=== PATIENT | female | born 1990 | race Two or more races ===

== ENCOUNTER 2020-03-28 17:15 | Emergency (ER) | payer MEDICARE, MEDICAID ==
[2020-03-28] MEDS ORDERED: Lidocaine 1% with EPINEPHrine 1:100,000 10 ML MDV INFILT ONE (17:16)
--- NOTE | 2020-03-28 17:34 | EDM.PDOC ---
ED HPI GENERAL MEDICAL PROBLEM - General Chief Complaint: Skin Complaint Stated Complaint: BOIL LT BREAST Time Seen by Provider: 03/28/20 17:30 Source of Information: Reports: Patient History Limitations: Reports: No Limitations - History of Present Illness INITIAL COMMENTS - FREE TEXT/NARRATIVE: 29-year-old female who reports on she noticed a soreness and a raised area that she felt was a pimple on the anterior and medial aspect of her left breast. Since then the area has progressively become more swollen and painful. She reports the pain is now a 5/10 and is sore and sharp some aching and throbbing and has been improved by the icepack that she placed. Pain was a 7-8/ 10 earlier. She has had some nausea but no vomiting. She has had no fevers or chills. She has been eating and drinking normally. No nipple discharge. No weakness or dizziness. There are no other associated signs or symptoms. There are no other modifying factors. 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) Left breast Pain Score (Numeric/FACES): 7 - Related Data Allergies Allergy/AdvReac Type Severity Reaction Status Date / Time No Known Allergies Allergy Verified 03/28/20 17:26 Home Meds: Home Meds ARIPiprazole [Abilify Maintena] 400 mg IM Q30D 03/28/20 [History] Aspirin [Halfprin] 81 mg PO DAILY 03/28/20 [History] Doxycycline Monohydrate 100 mg PO BID 10 Days #20 tablet 03/28/20 [Rx] Prazosin [Minpress] 1 mg PO BEDTIME 03/28/20 [History] Venlafaxine [Effexor XR] 150 mg PO DAILY 03/28/20 [History] cloZAPine 150 mg PO BEDTIME 03/28/20 [History] metFORMIN [Glucophage] 500 mg PO BID 03/28/20 [History] Past Medical History Psychiatric History: Reports: Anxiety, Schizophrenia Endocrine/Metabolic History: Reports: Diabetes, Type II, Obesity/BMI 30+ - Past Surgical History Other Surgical History Comment: No previous surgeries. Social & Family History - Tobacco Use Smoking Status *Q: Unknown Ever Smoked (Nonsmoker) - Alcohol Use Alcohol Use History: No - Living Situation & Occupation Occupation: Unemployed Social History Comment: Lives at home with her family. ED ROS GENERAL - Review of Systems Review Of Systems: See Below Constitutional: Reports: No Symptoms HEENT: Reports: No Symptoms Respiratory: Reports: No Symptoms Cardiovascular: Reports: No Symptoms GI/Abdominal: Reports: Nausea. Denies: Vomiting : Reports: No Symptoms Musculoskeletal: Reports: No Symptoms Skin: Reports: Erythema, Other (Swollen, red area on left inferior breast with increased warmth) Neurological: Reports: No Symptoms Hematologic/Lymphatic: Reports: No Symptoms Immunologic: Reports: No Symptoms ED EXAM, SKIN/RASH Exam: See Below Exam Limited By: No Limitations General Appearance: Alert, WD/WN, Mild Distress, Other (Nontoxic appearing) Eye Exam: Bilateral Eye: Corneal Abrasion, Normal Inspection, PERRL Ears: Normal External Exam, Hearing Grossly Normal Nose: Normal Inspection, Normal Mucosa, No Blood Throat/Mouth: Normal Inspection, Normal Oropharynx, Normal Voice, No Airway Compromise Head: Atraumatic, Normocephalic Neck: Normal Inspection, Supple, Non-Tender, Full Range of Motion Respiratory/Chest: No Respiratory Distress, Lungs Clear, Normal Breath Sounds, No Accessory Muscle Use, Other (Tender, erythematous, fluctuant area about the size of a golf ball on her left inferior medial breast. No nipple discharge.) Cardiovascular: Normal Peripheral Pulses, No Murmur, Tachycardia (Mildly) Peripheral Pulses: 2+: Radial (L), Radial (R) GI/Abdominal: Normal Bowel Sounds, Soft, Non-Tender, No Mass Back Exam: Normal Inspection Extremities: Normal Inspection, Normal Range of Motion, Non-Tender, No Pedal Edema, Normal Capillary Refill Neurological: Alert, Oriented, CN II-XII Intact, Normal Cognition, No Motor/ Sensory Deficits Psychiatric: Normal Affect Skin: Warm, Dry, Intact, Erythema (Area on left breast), Increased Warmth (Area on left breast) Location, Skin: Other (Left) Characteristics: Erythematous Associated features: Warmth, Tenderness, Swelling (With fluctuant area about the size of a golf ball.), Inflammation Lymphatic: No Adenopathy ED SKIN PROCEDURES - I&D Site: Left breast Skin Prep: Providone-Iodine (Betadine) Local Anesthesia: Lidocaine: 1% with EPI Local Anesthetic Volume: Other (14 mL. The area around the abscess was injected and then the skin overlying the abscess was injected. There was good anesthesia no complications.) Area Incised With: 11 Blade Drainage: Purulent, Large Amount Probed to Break Up Loculations: Yes Packed With: 1/2 in. Iodoform Sterile Dressing: Adhesive Dressing, 4x4(s) Complications: No Progress/Comments: After informed verbal consent was obtained from the patient, the area was anesthetized as detailed above using 11 blade scalpel along the Lines of Leon , a 2.5 cm incision was made and large amount of pus was expressed. The area was probed with a blunt hemostat to break up loculations and then was copiously irrigated with Betadine-tinged normal saline and then was packed with half-inch iodoform gauze. An appropriate supportive dressing was applied by the nursing staff following this with 4 x 4's. The patient tolerated this well and there were no apparent complications. Course - Vital Signs Last Recorded V/S: Last Vital Signs Temp 36.4 C 03/28/20 17:20 Pulse 108 H 03/28/20 17:20 Resp 20 03/28/20 17:20 BP 118/74 03/28/20 17:20 Pulse Ox 97 03/28/20 17:20 - Orders/Labs/Meds Meds: Medications Discontinued Medications Generic Name Dose Route Start Last Admin Trade Name Freq PRN Reason Stop Dose Admin Doxycycline Hyclate 200 mg 03/28/20 18:19 03/28/20 18:25 Vibra-Tabs PO 03/28/20 18:20 200 mg ONETIME ONE Administration - Re-Assessments/Exams Free Text/Narrative Re-Assessment/Exam: 03/28/20 18:10: Patient does have history of diabetes and is on metformin and we checked her blood sugar and it was 143. Patient with subcutaneous abscess on the lower aspect of her left breast. It appears to be a skin abscess. It was I indeed successfully and packed with iodoform gauze. The patient will need to follow-up with her primary provider for reevaluation of her breast following resolution of the infection. I am placing the patient on doxycycline and will give her the first dose now. Precautions and reasons for return to the emergency department were discussed with the patient while she was in the emergency department and detailed in her discharge instructions. Departure - Departure Time of Disposition: 18:22 Disposition: Home, Self-Care 01 Condition: Good (Improved) Clinical Impression: Cellulitis of left breast Subcutaneous abscess Qualifiers: Site of cutaneous abscess: other site Qualified Code(s): L02.818 - Cutaneous abscess of other sites - Discharge Information Prescriptions: Doxycycline Monohydrate 100 mg PO BID 10 Days #20 tablet Instructions: Skin Abscess, [id number], Cellulitis, Adult, [id number] Referrals: Candy Gomez MD [Primary Care Provider] - Forms: ED Department Discharge Additional Instructions: You have an abscess of your left breast. It appears to be involving the skin only but you'll need to follow-up with your primary provider for the infection has resolved to have your breast rechecked. Medication as prescribed ( doxycycline 100 mg). Take probiotics or eat yogurt daily while you are on the antibiotic. You may take Tylenol 1000 mg by mouth every 6 hours as needed for pain. Leave the packing in place until Sunday and at that time remove the packing and wash the area thoroughly rinsing with a lot of water as the dressing after the shower. Do this 1-2 times daily until the wound has closed over. Back to the emergency department for increasing redness, increasing swelling, fever, vomiting, marked increase in pain or any other concerning sign or symptom. Sepsis Event Note - Evaluation Sepsis Screening Result: No Definite Risk - Focused Exam Vital Signs: Vital Signs Temp Pulse Resp BP Pulse Ox 03/28/20 17:20 36.4 C 108 H 20 118/74 97 Date Exam was Performed: 03/28/20 Time Exam was Performed: 18:28
[2020-03-28] MEDS ORDERED: Doxycycline 100 MG Tab PO ONE (18:19)
== END 2020-03-28 18:31 | disposition home or self-care (01) ==
LOC: FB.ED 17:15
DX: N61.0 Mastitis without abscess (principal); N61.1 Abscess of the breast and nipple; F20.9 Schizophrenia, unspecified; F41.9 Anxiety disorder, unspecified; E11.9 Type 2 diabetes mellitus without complications; E66.9 Obesity, unspecified; Z68.41 Body mass index [BMI] 40.0-44.9, adult; Z79.82 Long term (current) use of aspirin; Z79.84 Long term (current) use of oral hypoglycemic drugs; Z79.899 Other long term (current) drug therapy
CPT/HCPCS: 10060; 99283; A9270

== ENCOUNTER 2020-11-09 13:49 | Emergency (ER) | payer MEDICARE, MEDICAID ==
[2020-11-09] MEDS ORDERED: Sodium Chloride 0.9% 10 ML Syringe FLUSH PRN (13:50)
[2020-11-09] MEDS ORDERED: Ondansetron 4 MG/2 ML SDV IVPUSH ONE (13:52)
[2020-11-09] MEDS ORDERED: Sodium Chloride 0.9% 1,000 ML IV SCH ×2 (14:00→15:45)
[2020-11-09] MEDS ORDERED: Dexamethasone 4 MG Tab PO STA (14:09)
[2020-11-09] MEDS ORDERED: Acetaminophen 500 MG Tab PO ONE (15:15)
--- NOTE | 2020-11-09 15:41 | EDM.PDOC ---
ED HPI GENERAL MEDICAL PROBLEM - General Chief Complaint: Respiratory Problem Stated Complaint: COUGH,SOB/COVID Time Seen by Provider: 11/09/20 14:50 Source of Information: Reports: Patient History Limitations: Reports: No Limitations - History of Present Illness INITIAL COMMENTS - FREE TEXT/NARRATIVE: Patient presented to the ED because of fever, cough,chills, fatigue for 1 week and yesterday she started to have N/V/D. She also c/o dyspnea, denies any chest pain. Middle Abdomen Pain Score (Numeric/FACES): 4 - Related Data Allergies Allergy/AdvReac Type Severity Reaction Status Date / Time No Known Allergies Allergy Verified 03/28/20 17:26 Home Meds: Home Meds ARIPiprazole [Abilify Maintena] 400 mg IM Q30D 03/28/20 [History] Aspirin [Halfprin] 81 mg PO DAILY 03/28/20 [History] Doxycycline Monohydrate 100 mg PO BID 10 Days #20 tablet 03/28/20 [Rx] Prazosin [Minpress] 1 mg PO BEDTIME 03/28/20 [History] Venlafaxine [Effexor XR] 150 mg PO DAILY 03/28/20 [History] cloZAPine 150 mg PO BEDTIME 03/28/20 [History] metFORMIN [Glucophage] 500 mg PO BID 03/28/20 [History] Codeine/guaiFENesin [Robitussin AC] 10 ml PO Q4H PRN #1 bottle 11/09/20 [Rx] Ondansetron [Zofran ODT] 4 mg PO Q4H PRN #7 tab.dis 11/09/20 [Rx] dexAMETHasone [Dexamethasone] 6 mg PO DAILY #30 tab 11/09/20 [Rx] Past Medical History HEENT History: Reports: Impaired Vision Psychiatric History: Reports: Anxiety, Schizophrenia Endocrine/Metabolic History: Reports: Diabetes, Type II, Obesity/BMI 30+ Other Endocrine/Metabolic History: Pre-diabetes - Past Surgical History Other Surgical History Comment: No previous surgeries. Social & Family History - Caffeine Use Caffeine Use: Reports: Coffee, Soda, Tea - Living Situation & Occupation Occupation: Unemployed ED ROS GENERAL - Review of Systems Review Of Systems: See Below Constitutional: Reports: No Symptoms HEENT: Reports: No Symptoms Respiratory: Reports: Shortness of Breath, Cough Cardiovascular: Reports: No Symptoms Endocrine: Reports: No Symptoms GI/Abdominal: Reports: No Symptoms : Reports: No Symptoms Musculoskeletal: Reports: No Symptoms Skin: Reports: No Symptoms Neurological: Reports: No Symptoms Psychiatric: Reports: No Symptoms ED EXAM, GENERAL - Physical Exam Exam: See Below Exam Limited By: No Limitations General Appearance: Alert, No Apparent Distress Ears: Normal External Exam, Normal Canal Nose: Normal Inspection, Normal Mucosa, No Blood Throat/Mouth: Normal Inspection, Normal Lips, Normal Teeth Head: Atraumatic, Normocephalic Neck: Normal Inspection, Supple, Non-Tender Respiratory/Chest: No Respiratory Distress, Normal Breath Sounds, Decreased Breath Sounds Cardiovascular: Normal Peripheral Pulses, Regular Rate, Rhythm, No Edema GI/Abdominal: Normal Bowel Sounds, Soft, Non-Tender, No Organomegaly Back Exam: Normal Inspection, Full Range of Motion Extremities: Normal Inspection, Normal Range of Motion, Non-Tender Course - Vital Signs Text/Narrative:: Labs/CXR was discussed with patient Tylenol 1000 mg po x1 Zofran 4 mg IV x1 NS 1 L bolus x 2 Last Recorded V/S: Last Vital Signs Temp 38.6 C H 11/09/20 13:49 Pulse 100 11/09/20 13:49 Resp 20 11/09/20 13:49 BP 125/78 11/09/20 13:49 Pulse Ox 91 L 11/09/20 13:49 - Orders/Labs/Meds Orders: Active Orders 24 hr Category Date Time Status Oxygen Therapy [RC] ASDIRECTED Care 11/09/20 15:16 Active Vital Signs [RC] Q15M Care 11/09/20 15:47 Active Sodium Chloride 0.9% [Normal Saline] 1,000 ml Med 11/09/20 14:00 Active IV ASDIRECTED Sodium Chloride 0.9% [Normal Saline] 1,000 ml Med 11/09/20 15:45 Active IV ASDIRECTED Sodium Chloride 0.9% [Saline Flush] Med 11/09/20 13:50 Active 10 ml FLUSH ASDIRECTED PRN Sodium Chloride 0.9% [Saline Flush] Med 11/09/20 16:00 Active 30 ml FLUSH ASDIRECTED Isolation [COMM] Routine Oth 11/09/20 13:51 Ordered Saline Lock Insert [OM.PC] Routine Oth 11/09/20 13:50 Ordered Medication Orders Sodium Chloride (Normal Saline) 1,000 mls @ 999 mls/hr IV ASDIRECTED LINA Last Admin: 11/09/20 14:41 Dose: 999 mls/hr Documented by: TREMAINE Sodium Chloride (Normal Saline) 1,000 mls @ 999 mls/hr IV ASDIRECTED LINA Last Admin: 11/09/20 15:53 Dose: 999 mls/hr Documented by: TREMAINE Sodium Chloride (Saline Flush) 10 ml FLUSH ASDIRECTED PRN PRN Reason: Keep Vein Open Sodium Chloride (Saline Flush) 30 ml FLUSH ASDIRECTED LINA Labs: Laboratory Tests 11/09/20 11/09/20 11/09/20 Range/Units 14:00 14:00 14:05 WBC 5.4 (3.0-10.3) x10-3/uL RBC 4.33 (3.60-5.20) x10(6)uL Hgb 12.6 (11.4-15.5) g/dL Hct 37.9 (34.2-48.2) % MCV 87.5 (76.7-100.5) fL MCH 29.1 (23.9-33.9) pg MCHC 33.2 (31.9-34.8) g/dL RDW 13.9 (12.3-16.5) % Plt Count 167 (151-488) x10(3)uL MPV 8.6 (7.1-12.4) fL Neut % (Auto) 72.1 (30.8-76.2) % Lymph % (Auto) 23.9 (18.4-52.1) % Navarro % (Auto) 3.7 L (4.4-15.7) % Eos % (Auto) 0.0 L (0.6-8.1) % Baso % (Auto) 0.3 (0.2-1.5) % Neut # (Auto) 3.9 (1.5-6.3) x10-3/uL Lymph # (Auto) 1.3 (1.0-4.4) x10-3/uL [place]arro # (Auto) 0.2 L (0.3-1.0) x10-3/uL Eos # (Auto) 0.0 (0.0-0.8) x10-3/uL Baso # (Auto) 0.0 (0.0-0.1) x10-3/uL Sodium 133 L (135-145) mmol/L Potassium 3.8 (3.5-5.3) mmol/L Chloride 95 L (100-110) mmol/L Carbon Dioxide 24 (21-32) mmol/L BUN 8 (7-18) mg/dL Creatinine 0.7 (0.55-1.02) mg/dL Est Cr Clr Drug Dosing TNP Estimated GFR (MDRD) > 60 (>60) BUN/Creatinine Ratio 11.4 (9-20) Glucose 180 H (80-116) mg/dL Calcium 8.5 L (8.6-10.2) mg/dL Total Bilirubin 0.4 (0.1-1.3) mg/dL AST 99 H (5-25) IU/L ALT 135 H (12-36) U/L Alkaline Phosphatase 78 (56-112) IU/L Total Protein 8.0 (6.0-8.0) g/dL Albumin 2.8 L (3.5-5.2) g/dL Globulin 5.2 g/dL Albumin/Globulin Ratio 0.5 SARS-CoV-2 RNA (JUANIS) Positive H (NEGATIVE) Meds: Medications Generic Name Dose Route Start Last Admin Trade Name Freq PRN Reason Stop Dose Admin Sodium Chloride 1,000 mls @ 999 mls/hr 11/09/20 14:00 11/09/20 14:41 Normal Saline IV 999 mls/hr ASDIRECTED LINA Administration Sodium Chloride 1,000 mls @ 999 mls/hr 11/09/20 15:45 11/09/20 15:53 Normal Saline IV 999 mls/hr ASDIRECTED LINA Administration Sodium Chloride 10 ml 11/09/20 13:50 Saline Flush FLUSH ASDIRECTED PRN Keep Vein Open Sodium Chloride 30 ml 11/09/20 16:00 Saline Flush FLUSH ASDIRECTED LINA Discontinued Medications Generic Name Dose Route Start Last Admin Trade Name Freq PRN Reason Stop Dose Admin Acetaminophen 1,000 mg 11/09/20 15:15 11/09/20 15:17 Tylenol Extra Strength PO 11/09/20 15:16 1,000 mg ONETIME ONE Administration Dexamethasone 8 mg 11/09/20 14:09 11/09/20 14:13 Dexamethasone PO 11/09/20 14:10 8 mg NOW STA Administration Diphenhydramine HCl 50 mg 11/09/20 15:46 Benadryl IVPUSH ONETIME PRN hypersensitivity reaction Epinephrine HCl 0.3 mg 11/09/20 15:46 Adrenalin IM ONETIME PRN hypersensitivity reaction Famotidine 20 mg 11/09/20 15:46 Pepcid IVPUSH ONETIME PRN hypersensitivity reaction Bamlanivimab 700 mg/ Sodium 270 mls @ 270 mls/hr 11/09/20 15:46 Chloride IV 11/09/20 15:47 ONETIME ONE Protocol Methylprednisolone Sodium Succinate 125 mg 11/09/20 15:46 Solu-Medrol IVPUSH ONETIME PRN hypersensitivity reaction Ondansetron HCl 4 mg 11/09/20 13:52 11/09/20 14:13 Zofran IVPUSH 11/09/20 13:53 4 mg ONETIME ONE Administration Departure - Departure Time of Disposition: 16:15 Disposition: Home, Self-Care 01 Condition: Good Clinical Impression: COVID-19 - Discharge Information Prescriptions: dexAMETHasone [Dexamethasone] 6 mg PO DAILY #30 tab Codeine/guaiFENesin [Robitussin AC] 10 ml PO Q4H PRN #1 bottle PRN Reason: Cough Ondansetron [Zofran ODT] 4 mg PO Q4H PRN #7 tab.dis PRN Reason: Nausea Instructions: COVID-19 Frequently Asked Questions Referrals: PCP,None [Primary Care Provider] - Forms: ED Department Discharge Additional Instructions: Please read discharge instructions on COVID Rest Increase oral fluids Take tylenol 100 mg every 8 hours as needed for body ache and fever Take dexamethasone 6 mg daily for 10 days Take Vit C-500 mg, D-2000 units, Zinc6-50 mg Robitussin with codeine, 10 ml every 4-6 hours as needed for cough Call your doctor tomorrow and ask him/her to refer you to the [facility] for Bamlanivibab treatment. It helps a lot with your recovery. Follow up as needed Sepsis Event Note (ED) - Focused Exam Vital Signs: Vital Signs Temp Pulse Resp BP Pulse Ox 11/09/20 13:49 38.6 C H 100 20 125/78 91 L - My Orders Last 24 Hours: My Active Orders 11/09/20 13:50 Sodium Chloride 0.9% [Saline Flush] 10 ml FLUSH ASDIRECTED PRN Saline Lock Insert [OM.PC] Routine 11/09/20 13:51 Isolation [COMM] Routine 11/09/20 14:00 Sodium Chloride 0.9% [Normal Saline] 1,000 ml IV ASDIRECTED 11/09/20 15:16 Oxygen Therapy [RC] ASDIRECTED 11/09/20 15:45 Sodium Chloride 0.9% [Normal Saline] 1,000 ml IV ASDIRECTED 11/09/20 15:47 Vital Signs [RC] Q15M 11/09/20 16:00 Sodium Chloride 0.9% [Saline Flush] 30 ml FLUSH ASDIRECTED - Assessment/Plan Last 24 Hours: My Active Orders 11/09/20 13:50 Sodium Chloride 0.9% [Saline Flush] 10 ml FLUSH ASDIRECTED PRN Saline Lock Insert [OM.PC] Routine 11/09/20 13:51 Isolation [COMM] Routine 11/09/20 14:00 Sodium Chloride 0.9% [Normal Saline] 1,000 ml IV ASDIRECTED 11/09/20 15:16 Oxygen Therapy [RC] ASDIRECTED 11/09/20 15:45 Sodium Chloride 0.9% [Normal Saline] 1,000 ml IV ASDIRECTED 11/09/20 15:47 Vital Signs [RC] Q15M 11/09/20 16:00 Sodium Chloride 0.9% [Saline Flush] 30 ml FLUSH ASDIRECTED
[2020-11-09] MEDS ORDERED: EPINEPHrine 1 MG/ML SDV IM PRN (15:46)
[2020-11-09] MEDS ORDERED: methylPREDNISolone Sodium Succinate 125 MG/2 ML SDV IVPUSH PRN (15:46)
[2020-11-09] MEDS ORDERED: diphenhydrAMINE 50 MG/ML SDV IVPUSH PRN (15:46)
[2020-11-09] MEDS ORDERED: Famotidine 20 MG/2 ML SDV IVPUSH PRN (15:46)
--- NOTE | 2020-11-09 15:50 | CR ---
INDICATION: Cough/dyspnea. CHEST ONE VIEW: An AP upright view of the chest was obtained 11/09/20 with poor inspiration (patient was unable to produce a good inspiration without coughing). The heart did not appear enlarged. There appears to be scattered areas infiltration in both lung laura, more prominent in the mid to lower lung laura on the left and right lower lung field. The appearance is somewhat peripheral and would be compatible with COVID-19, but should be correlated clinically in that regard. Evidence of exogenous obesity is noted. IMPRESSION: 1. Bilateral infiltrates compatible with COVID-19 - correlate clinically. 2. Exogenous obesity. MTDD
[2020-11-09] MEDS ORDERED: Sodium Chloride 0.9% 10 ML Syringe FLUSH SCH (16:00)
== END 2020-11-09 17:00 | disposition home or self-care (01) ==
LOC: FB.ED 13:49
DX: U07.1 COVID-19 (principal); E11.9 Type 2 diabetes mellitus without complications; F41.9 Anxiety disorder, unspecified; F20.9 Schizophrenia, unspecified; E66.9 Obesity, unspecified; Z68.41 Body mass index [BMI] 40.0-44.9, adult; Z79.899 Other long term (current) drug therapy; Z79.82 Long term (current) use of aspirin
CPT/HCPCS: 36415; 71045; 80053; 85025; 87804; 87804-59; 94760; 96374; 99285-25; A9270-GY; J2405; J7030; J8540; U0002

== ENCOUNTER 2023-03-22 21:30 | Emergency (ER) | payer MEDICARE, MEDICAID ==
[2023-03-22] MEDS ORDERED: LORazepam 0.5 MG Tab PO ONE (21:55)
== END 2023-03-22 22:40 | disposition home or self-care (01) ==
LOC: FB.ED 21:30
DX: F41.9 Anxiety disorder, unspecified (principal); E11.9 Type 2 diabetes mellitus without complications; E66.9 Obesity, unspecified; Z68.38 Body mass index [BMI] 38.0-38.9, adult; Z88.8 Allergy status to other drugs, medicaments and biological substances
CPT/HCPCS: 99283; A9270

== ENCOUNTER 2024-10-24 11:20 | Emergency (ER) | payer MEDICARE, MEDICAID ==
[2024-10-24] MEDS ORDERED: Lidocaine 2% 20 ML MDV INFILT ONE (11:21)
[2024-10-24] MEDS: Lidocaine/Epineph/Tetracaine 3 ML Syringe TOP ONE (12:05)
[2024-10-24] MEDS: Diphtheria,Pertussis(Acell),Tetanus Vaccine 0.5 ML Syringe IM ONE (12:13)
== END 2024-10-24 12:46 | disposition home or self-care (01) ==
LOC: FB.ED 11:20
DX: S61.213A Laceration without foreign body of left middle finger without damage to nail, initial encounter (principal); E11.9 Type 2 diabetes mellitus without complications; E66.9 Obesity, unspecified; Z86.16 Personal history of COVID-19; Z79.899 Other long term (current) drug therapy; Z88.6 Allergy status to analgesic agent; Z68.41 Body mass index [BMI] 40.0-44.9, adult; Z23 Encounter for immunization; W26.8XXA Contact with other sharp object(s), not elsewhere classified, initial encounter
CPT/HCPCS: 12001; 90471; 90715; 99282; 99283; A9270